=== PATIENT | male | born 1955 | race Caucasian/White ===

== ENCOUNTER → 2017-06-15 | Outpatient (CLI) | payer MEDICARE ==
--- NOTE | 2017-06-16 08:58 | RAD ---
Chest radiograph 06/15/2017 2:00 AM Indication: Reactive airway disease, pneumonia Comparison: Chest radiograph 10/08/2011 Technique: PA and lateral views of the chest are provided. Findings: Cardiomediastinal silhouette is within normal limits. No pleural effusions, pulmonary vascular congestion or pneumothorax. Mild bronchial wall thickening is suggestive of bronchitis. The lungs are clear. Osseous structures are normal. Impression: Mild bronchial wall thickening suggestive of bronchitis. No focal airspace consolidation is identified.
== END | disposition home or self-care (01) ==
LOC: DXRAD 16:35
PROVIDERS: ATTEND General Practice
DX: J45.909 Unspecified asthma, uncomplicated (principal)
CPT/HCPCS: 71046